=== PATIENT | male | born 1965 | race Caucasian/White ===

== ENCOUNTER 2024-03-30 14:35 | Emergency (ER) | payer OTHER, BC ==
[~2024-03-30] VITALS: Ht 182.9 cm; Wt 75.5 kg
[2024-03-30] MEDS ORDERED: DICL50TA10 PO (15:41)
[2024-03-30] MEDS ORDERED: HYDR-3965 PO (16:09)
[2024-03-30 16:17] VITALS: BP 122/74; PULSE 77; RESP 16; TEMP 98.5; O2SAT 99
== END 2024-03-30 16:19 | disposition home or self-care (01) ==
LOC: ER 14:36
DX: M77.01 Medial epicondylitis, right elbow (principal); M25.532 Pain in left wrist; Z79.899 Other long term (current) drug therapy
CPT/HCPCS: 29125; 73080; 73110; 99284; A6449